=== PATIENT | female | born 1960 | race Caucasian/White ===

== ENCOUNTER 2019-04-21 07:32 | Emergency (ER) | payer OTHER ==
[~2019-04-21] VITALS: Ht 162.6 cm; Wt 58.0 kg
--- NOTE | 2019-04-21 07:38 | NUR ---
PATIENT BROUGTH IN BY GON[facility] WITH CHIEF COMPLAINT OF NOT SLEEPING FOR 5 DAYS WITH INTERMITTENT SOB. DENIES CP, FEVER, COUGH, N/V. THE PATIENT IS ALERT, ORIENTED, WARM AND DRY.
[2019-04-21 07:39] VITALS: BP 180/100
[2019-04-21] MEDS ORDERED: ALBU0.63 NEB (07:48)
[2019-04-21] MEDS ORDERED: ALPR0.5T6 PO (07:49)
--- NOTE | 2019-04-21 08:31 | NUR ---
DISCHARGE INSTRUCTIONS REVIEWED
== END 2019-04-21 08:51 | disposition home or self-care (01) ==
LOC: ED 08:38
DX: F41.1 Generalized anxiety disorder (principal); F51.01 Primary insomnia; J45.909 Unspecified asthma, uncomplicated; Z76.0 Encounter for issue of repeat prescription
CPT/HCPCS: 99283